=== PATIENT | male | born 1990 | race Hispanic/Latino ===

== ENCOUNTER 2017-05-23 03:08 | Inpatient (IN) | payer OTHER, SELFPAY ==
[2017-05-23 03:32] LABS: #Basophils 0.1 thou/uL (0.0-0.2); #Eosinphils 0.3 thou/uL (0.0-0.7); #Lymphocytes 2.5 thou/uL (1.20-3.40); #Monocytes 1.4 thou/uL (0.11-0.59); %Basophils 0.5 % (0.0-1.0); %Eosinophils 1.6 % (0.0-10.0); %Lymphocytes 15.6 % (21.0-51.0); %Monocytes 8.6 % (0.0-10.0); %Neutrophils 73.8 % (42.0-75.0); Hemoglobin 14.2 g/dL (14.0-18.0); Mean Corpuscular HGB CONC 34.5 g/dL (32.0-36.0); Platelet Count 281 thou/uL (130-400); RBC Distribution Width 11.1 % (11.5-14.5); Red Blood Cell (RBC) Count 4.75 mill/uL (4.70-6.10); White Blood Cell (WBC) Count 16.2 thou/uL (4.8-10.8)
[2017-05-23] MEDS ORDERED: Ondansetron HCl/PF 4 MG/2 ML Vial ONE (03:46)
[2017-05-23 03:59] LABS: ALT (SGPT) 27 U/L (8-55); AST (SGOT) 40 U/L (5-34); Alcohol Less than 10 mg/dL (Less than 10); Alkaline Phosphatase 69 U/L (40-150); Anion Gap 16 mmol/L (10-20); BUN (Urea Nitrogen) 19 mg/dL (8.9-20.6); Bilirubin, Total 0.3 mg/dL (0.2-1.2); Calc. Creatinine Clearance 0 mL/min (70-130); Calcium 9.2 mg/dL (7.8-10.44); Carbon Dioxide 23 mmol/L (22-29); Chloride 106 mmol/L (98-107); Estimated GFR-MDRD Greater than 90; Globulin 3.4 g/dL (2.4-3.5); Glucose 107 mg/dL (70-105); Lipase 17 U/L (8-78); Potassium 4.5 mmol/L (3.5-5.1); Protein, Total 7.4 g/dL (6.0-8.3); Sodium 140 mmol/L (136-145)
[2017-05-23] MEDS ORDERED: Adacel (T-DAP) 0.5 ML VIAL ONE (04:19)
[2017-05-23] MEDS ORDERED: CEFAZOLIN/Water 2 GM/20 ML SYRINGE ONE ×2 (04:19→10:29)
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
[2017-05-23] MEDS ORDERED: Ondansetron ODT 4 MG TAB PO PRN (06:34)
[2017-05-23] MEDS ORDERED: Morphine 4 MG/ML Carpuject IVP PRN (06:34)
[2017-05-23] MEDS ORDERED: Dextrose 5% in Water 1,000 ML IV PRN (06:34)
[2017-05-23] MEDS ORDERED: hydrALAZINE 20 MG/ML VIAL SLOW IVP PRN (06:34)
[2017-05-23] MEDS ORDERED: Ondansetron HCl/PF 4 MG/2 ML Vial IVP PRN ×2 (06:34→12:53)
[2017-05-23] MEDS ORDERED: Ketorolac Tromethamine 30 MG/ML VIAL IVP SCH ×2 (06:34→07:00)
[2017-05-23] MEDS ORDERED: Dextrose 50% Abboject 50 ML SYRINGE SLOW IVP PRN (06:34)
[2017-05-23] MEDS ORDERED: Acetaminophen 1,000 MG in Premix Bag 1 BAG IVPB PRN (06:34)
[2017-05-23 07:00] VITALS: BMI 29.0
[2017-05-23] MEDS: Sodium Chloride 0.9% 1,000 ML IV SCH ×2 (07:24→19:29)
[2017-05-23] MEDS ORDERED: ISOVUE-370 76%-LOCM 1 ML ONE (07:43)
[2017-05-23] MEDS ORDERED: CEFAZOLIN/Water 2 GM/20 ML SYRINGE SLOW IVP SCH (07:45)
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
--- NOTE | 2017-05-23 09:09 | RAD ---
LEFT ELBOW RADIOGRAPHS 3 VIEWS: DATE: 05/23/17. PROVIDED CLINICAL HISTORY: Left elbow pain status post injury. FINDINGS: No evidence for fracture or other acute osseous abnormality. If there is persistent clinical concern , conservative management and followup imaging are advised. IMPRESSION: As above. POS: OFF
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
[2017-05-23] MEDS ORDERED: Fentanyl 100 MCG/2 ML VIAL ONE ×2 (09:53→10:00)
[2017-05-23] MEDS ORDERED: Midazolam HCl 2 mg/2 ml Vial ONE ×2 (09:53→10:00)
[2017-05-23] MEDS ORDERED: Dexamethasone 4 mg/ml Vial ONE (10:00)
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
[2017-05-23] MEDS ORDERED: Promethazine HCl 25 MG/ML VIAL IM PRN (12:53)
[2017-05-23] MEDS ORDERED: Promethazine HCl 25 MG/ML VIAL SLOW IVP PRN (12:53)
[2017-05-23] MEDS: CEFAZOLIN/Water 2 GM/20 ML SYRINGE SLOW IVP SCH ×2 (14:11→19:07)
[2017-05-23] MEDS: Famotidine/PF 20 mg/2ml Vial SLOW IVP SCH ×2 (14:11→22:42)
[2017-05-23] MEDS: Ketorolac Tromethamine 30 MG/ML VIAL IVP SCH ×2 (14:11→19:06)
--- NOTE | 2017-05-23 14:24 | RAD ---
THREE INTRAOPERATIVE FLUOROSCOPIC IMAGES LEFT ANKLE: 05/23/2017 HISTORY: ORIF left ankle. COMPARISON: Views of left tibia and fibula on 05/23/2017 at 0338 hours. FINDINGS: There are two screws transfixing the fracture of the medial malleolus. Alignment of fracture fragmen ts is improved from the prior exam. No hardware complication is seen. There is no dislocation seen on this exam. IMPRESSION: Internal fixation of fracture involving the left medial malleolus. POS: [facility]
[2017-05-23] MEDS ORDERED: traMADol HCl 50 MG TAB PO PRN (22:19)
[2017-05-23] MEDS: Ibuprofen 800 MG TAB PO SCH (22:42)
[2017-05-23] MEDS: Acetaminophen 500 MG TAB PO SCH (22:42)
[2017-05-23] MEDS: traMADol HCl 50 MG TAB PO SCH (22:42)
[2017-05-24] MEDS ORDERED: CEFAZOLIN/Water 2 GM/20 ML SYRINGE SLOW IVP SCH (03:00)
[2017-05-24 04:46] LABS: #Lymphocytes 1.5 thou/uL (1.20-3.40); #Monocytes 0.9 thou/uL (0.11-0.59); #Neutrophils 9.7 thou/uL (1.40-6.50); %Basophils 0.1 % (0.0-1.0); %Eosinophils 0.1 % (0.0-10.0); %Lymphocytes 12.3 % (21.0-51.0); %Monocytes 7.3 % (0.0-10.0); %Neutrophils 80.3 % (42.0-75.0); Mean Corpuscular Hemoglobin 28.7 pg (27.0-31.0); Mean Platelet Volume 7.4 fL (7.4-10.4); Platelet Count 235 thou/uL (130-400); RBC Distribution Width 11.2 % (11.5-14.5); Red Blood Cell (RBC) Count 4.16 mill/uL (4.70-6.10); White Blood Cell (WBC) Count 12.1 thou/uL (4.8-10.8)
[2017-05-24 05:08] LABS: Anion Gap 12 mmol/L (10-20); BUN (Urea Nitrogen) 13 mg/dL (8.9-20.6); Calc. Creatinine Clearance 168 mL/min (70-130); Calcium 9.2 mg/dL (7.8-10.44); Carbon Dioxide 21 mmol/L (22-29); Chloride 107 mmol/L (98-107); Estimated GFR-MDRD Greater than 90; Glucose 118 mg/dL (70-105); Sodium 136 mmol/L (136-145)
[2017-05-24] MEDS: Ibuprofen 800 MG TAB PO SCH (05:16)
[2017-05-24] MEDS: traMADol HCl 50 MG TAB PO SCH (05:16)
[2017-05-24] MEDS: Acetaminophen 500 MG TAB PO SCH (05:16)
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
[2017-05-24] MEDS: Famotidine/PF 20 mg/2ml Vial SLOW IVP SCH (08:50)
[2017-05-24 08:57] VITALS: BP 120/75; TEMP 97.7
[2017-05-24] MEDS ORDERED: Enoxaparin Sodium 40 MG/0.4 ML SYRINGE SC SCH (09:00)
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
== END 2017-05-24 12:10 | disposition home or self-care (01) | DRG 493 ==
LOC: ERS 03:08 → SURG A 04:30
PROVIDERS: ADMIT Specialist; ATTEND Specialist
PROC: 0QSK04Z Reposition Left Fibula with Internal Fixation Device, Open Approach (ICD-10-PCS; principal; 2017-05-23)
DX: S82.452A Displaced comminuted fracture of shaft of left fibula, initial encounter for closed fracture (principal); S06.0X9A Concussion with loss of consciousness of unspecified duration, initial encounter; S91.012A Laceration without foreign body, left ankle, initial encounter; F11.90 Opioid use, unspecified, uncomplicated; R40.2411 Glasgow coma scale score 13-15, in the field [EMT or ambulance]; V29.40XA Motorcycle driver injured in collision with unspecified motor vehicles in traffic accident, initial encounter; Y92.410 Unspecified street and highway as the place of occurrence of the external cause; S82.52XA Displaced fracture of medial malleolus of left tibia, initial encounter for closed fracture
CPT/HCPCS: 36415; 70450; 71045; 71260; 72125; 72170; 74177; 76001; 80048; 80053; 80307; 83690; 85025; 86850; 86900; 86901; 90715; C1713; G0390; G8978-GP-CL; G8979-GP-CK; J0131; J1100; J1650; J1885; J2250; J2270; J2405; J3010; S0028